=== PATIENT | male | born 1935 | race Caucasian/White ===

== ENCOUNTER → 2017-09-01 | Day surgery (SDC) | payer MEDICARE ==
[~2017-09-01] VITALS: Ht 170.2 cm; Wt 73.0 kg
[~2017-09-01] MED LIST: CHLORHEXIDINE GLUCONATE 2 % 1 PACK (2 CLOTHS) TOPICAL PRN; CYCLOPENTOLATE HCL 1% OPHT SOLN 2 ML BTL ONE; HYALURONIDASE/LIDOCAINE/BUPIVACAINE 5 ML SYR RIGHT EYE ONE; INSULIN HUMAN REGULAR 1,000 UNITS/10 ML VIAL SQ PRN; LACTATED RINGER'S 1000 ML IV PRN; LIDOCAINE HCL 1% PF 30 ML VIAL ONE; LIDOCAINE HCL 2% JELLY 5 ML SYRINGE ONE; LOSA100T PO; METOPROLOL TARTRATE 25 MG TAB PO PRN; OMEP20TA PO; PHENYLEPHRINE HCL 10% OPTH SOLN 5 ML BTL ONE; POVIDONE IODINE 5% (ANTISEPSIS KIT) 4 APPLICATIONS EACH NARE PRN; PROPARACAINE HCL 0.5% OPHT SOLN 15 ML BTL ONE; PROPARACAINE HCL 0.5% OPHT SOLN 15 ML BTL RIGHT EYE ONE; PROPOFOL 200 MG/20 ML AMP ONE; SIMV80TA PO; SODIUM CHLORID 0.9% 500 ML IV PRN; TOBRAMYCIN/DEXAMETHASONE OPTH OINT 3.5 GM TUBE ONE; TROPICAMIDE 1% OPHT SOLN 15 ML BTL ONE; VITA1000 PO
[2017-09-01] MEDS: FLURBIPROFEN 0.03% OPHT SOLN 2.5 ML BTL RIGHT EYE SCH ×4 (07:00→07:15)
[2017-09-01] MEDS: PHENYLEPHRINE HCL 10% OPTH SOLN 5 ML BTL RIGHT EYE SCH ×4 (07:00→07:15)
[2017-09-01] MEDS: TROPICAMIDE 1% OPHT SOLN 15 ML BTL RIGHT EYE SCH ×4 (07:00→07:15)
[2017-09-01] MEDS: CYCLOPENTOLATE HCL 1% OPHT SOLN 2 ML BTL RIGHT EYE SCH ×4 (07:00→07:15)
[2017-09-01 07:20] VITALS: PULSE 77
[2017-09-01 07:32] VITALS: PULSE 68
[2017-09-01 08:48] VITALS: BP 139/79; PULSE 81; RESP 16; TEMP 98; O2SAT 96
--- NOTE | 2017-09-01 13:27 | MP ---
cc: JEFF VILLAREAL M.D. [facility] #[id number] DATE OF SURGERY 09/01/2017 PREOPERATIVE DIAGNOSIS Visually significant cataract right eye. POSTOPERATIVE DIAGNOSIS Visually significant cataract right eye. OPERATION Phacoemulsification with posterior chamber lens implantation, right eye. SURGEON Jeff Villareal MD ANESTHESIA Retrobulbar with MAC. COMPLICATIONS None PROCEDURE After informed consent was obtained, the patient was brought into the operative suite and placed on appropriate monitors by the Anesthesia Service. The patient had received a prior retrobulbar injection of local anesthetic by the Anesthesia Service in the holding area. The patient's operative eye was then prepped and draped in the usual sterile fashion. A wire lid speculum was placed. A paracentesis incision was made in the peripheral cornea with a 1 mm jacques keratome. The anterior chamber was filled with viscoelastic. The anterior chamber was then entered through a stepped, clear corneal incision using a sharp 3 mm jacques keratome. A circular tear capsulorrhexis was then made with a bent needle cystitome. Following hydrodissection of the lens nucleus with balanced saline, phacoemulsification of the nucleus was performed using a modified chopping technique. The remaining cortex was removed with irrigation/aspiration. The prior two procedures were both performed using the handpieces of the [employer] phaco unit. The capsular bag was then filled with viscoelastic. The intraocular lens was then injected into the capsular bag and positioned. The type of intraocular lens and its power can be found elsewhere in this chart. The remaining viscoelastic was then removed from the anterior chamber with the IA handpiece. The anterior chamber was reformed with balanced saline. The wound was then closed securely with stromal hydration. It was found to be watertight to an intraocular pressure of at least 30 mmHg by palpation. A small amount of balanced salt solution was then removed through the paracentesis site and the intraocular pressure at the end of the case was approximately 20 by palpation. All drapes were then removed. TobraDex ointment was then placed in the eye, which was closed beneath a semi-pressure patch dressing. The patient tolerated this procedure well and left the operating room awake and alert. The patient is to follow-up in my office in the morning. MD AYO Esparza/JAIMIE /9:20 AM /1:19 PM
== END | disposition home or self-care (01) ==
LOC: PHSDC 06:30
PROVIDERS: ATTEND Optometrist Occupational Vision
DX: H25.813 Combined forms of age-related cataract, bilateral (principal); H43.813 Vitreous degeneration, bilateral; I12.9 Hypertensive chronic kidney disease with stage 1 through stage 4 chronic kidney disease, or unspecified chronic kidney disease; N18.3 Chronic kidney disease, stage 3 (moderate); E78.5 Hyperlipidemia, unspecified; K21.9 Gastro-esophageal reflux disease without esophagitis
CPT/HCPCS: 00142; 66984; J7040; V2632

== ENCOUNTER → 2017-10-06 | Day surgery (SDC) | payer MEDICARE ==
[~2017-10-06] VITALS: Ht 170.2 cm; Wt 72.5 kg
[~2017-10-06] MED LIST changes: -CYCLOPENTOLATE HCL 1% OPHT SOLN 2 ML BTL ONE; +HYALURONIDASE/LIDOCAINE/BUPIVACAINE 5 ML SYR LEFT EYE ONE; -HYALURONIDASE/LIDOCAINE/BUPIVACAINE 5 ML SYR RIGHT EYE ONE; -INSULIN HUMAN REGULAR 1,000 UNITS/10 ML VIAL SQ PRN; -LIDOCAINE HCL 2% JELLY 5 ML SYRINGE ONE; -METOPROLOL TARTRATE 25 MG TAB PO PRN; -OMEP20TA PO; +OMEP20TA93 PO; -PHENYLEPHRINE HCL 10% OPTH SOLN 5 ML BTL ONE; +PROPARACAINE HCL 0.5% OPHT SOLN 15 ML BTL LEFT EYE ONE; -PROPARACAINE HCL 0.5% OPHT SOLN 15 ML BTL ONE; -PROPARACAINE HCL 0.5% OPHT SOLN 15 ML BTL RIGHT EYE ONE; +SODIUM CHLORID 0.9% 500 ML INJ 500 ML ONE; -SODIUM CHLORID 0.9% 500 ML IV PRN; -TROPICAMIDE 1% OPHT SOLN 15 ML BTL ONE
[2017-10-06] MEDS: PHENYLEPHRINE HCL 10% OPTH SOLN 5 ML BTL LEFT EYE SCH ×4 (07:15→07:30)
[2017-10-06] MEDS: FLURBIPROFEN 0.03% OPHT SOLN 2.5 ML BTL LEFT EYE SCH ×4 (07:15→07:30)
[2017-10-06] MEDS: CYCLOPENTOLATE HCL 1% OPHT SOLN 2 ML BTL LEFT EYE SCH ×4 (07:15→07:30)
[2017-10-06] MEDS: TROPICAMIDE 1% OPHT SOLN 15 ML BTL LEFT EYE SCH ×4 (07:15→07:30)
[2017-10-06 07:19] VITALS: PULSE 76
[2017-10-06 07:48] VITALS: PULSE 67
[2017-10-06 09:00] VITALS: TEMP 98
[2017-10-06 09:20] VITALS: BP 155/81; PULSE 65; RESP 16; O2SAT 97
--- NOTE | 2017-10-06 10:44 | MP ---
cc: JEFF VILLAREAL M.D. [facility] NUMBER: [id number] DATE OF SURGERY: 10/06/2017 PREOPERATIVE DIAGNOSIS: Visually significant cataract left eye. POSTOPERATIVE DIAGNOSIS: Visually significant cataract left eye. OPERATION: Phacoemulsification with posterior chamber lens implantation, left eye. SURGEON: Jeff Villareal MD ANESTHESIA: Retrobulbar with MAC. COMPLICATIONS: None. PROCEDURE: After informed consent was obtained, the patient was brought into the operative suite and placed on appropriate monitors by the Anesthesia Service. The patient had received a prior retrobulbar injection of local anesthetic by the Anesthesia Service in the holding area. The patient's operative eye was then prepped and draped in the usual sterile fashion. A wire lid speculum was placed. A paracentesis incision was made in the peripheral cornea with a 1 mm jacques keratome. The anterior chamber was filled with viscoelastic. The anterior chamber was then entered through a stepped, clear corneal incision using a sharp 3 mm jacques keratome. A circular tear capsulorrhexis was then made with a bent needle cystitome. Following hydrodissection of the lens nucleus with balanced saline, phaco-emulsification of the nucleus was performed using a modified chopping technique. The remaining cortex was removed with irrigation/aspiration. The prior two procedures were both performed using the handpieces of the [employer] phaco unit. The capsular bag was then filled with viscoelastic. The intraocular lens was then injected into the capsular bag and positioned. The type of intraocular lens and its power can be found elsewhere in this chart. The remaining viscoelastic was then removed from the anterior chamber with the IA handpiece. The anterior chamber was reformed with balanced saline. The wound was then closed securely with stromal hydration. It was found to be watertight to an intraocular pressure of at least 30 mmHg by palpation. A small amount of balanced salt solution was then removed through the paracentesis site and the intraocular pressure at the end of the case was approximately 20 by palpation. All drapes were then removed. TobraDex ointment was then placed in the eye, which was closed beneath a semi-pressure patch dressing. The patient tolerated this procedure well and left the operating room awake and alert. The patient is to follow-up in my office in the morning. MD Barak Esparza /9:15 AM /10:39 AM
== END | disposition home or self-care (01) ==
LOC: PHSDC 06:39
PROVIDERS: ATTEND Optometrist Occupational Vision
DX: H25.812 Combined forms of age-related cataract, left eye (principal); H43.813 Vitreous degeneration, bilateral; I12.9 Hypertensive chronic kidney disease with stage 1 through stage 4 chronic kidney disease, or unspecified chronic kidney disease; N18.3 Chronic kidney disease, stage 3 (moderate); K21.9 Gastro-esophageal reflux disease without esophagitis; E55.9 Vitamin D deficiency, unspecified
CPT/HCPCS: 00142; 66984; J7040; V2632

== ENCOUNTER → 2018-03-27 | Day surgery (SDC) | payer MEDICARE ==
[~2018-03-27] VITALS: Ht 170.2 cm; Wt 67.4 kg
[~2018-03-27] MED LIST changes: +ACETAMINOPHEN 1000 MG/100 ML 100 ML IV SCH; +BUPIVACAINE/EPINEPHRINE 0.5% PF 10 ML VIAL ONE; +DEXMEDETOMIDINE HCL 200 MCG/2 ML VIAL ONE; +DO NOT ADM ANY ANTICOAGULANT DRUGS PRN; -HYALURONIDASE/LIDOCAINE/BUPIVACAINE 5 ML SYR LEFT EYE ONE; +INSULIN HUMAN REGULAR 1,000 UNITS/10 ML VIAL SQ PRN; +LACTATED RINGER'S 1000 ML INJ 1,000 ML IV ONE; -LIDOCAINE HCL 1% PF 30 ML VIAL ONE; +LIDOCAINE HCL 1% PF 5 ML SYRINGE OTHER ONE; +METOPROLOL TARTRATE 25 MG TAB PO PRN; +MIDAZOLAM HCL 2 MG/2 ML VIAL ONE; +MORPHINE SULFATE 4 MG/ML INJ IV PUSH PRN; +ONDANSETRON HCL 4 MG/2 ML VIAL IV PUSH PRN; +ONDANSETRON HCL 4 MG/2 ML VIAL IV PUSH SCH; +ONDANSETRON ODT 4 MG TAB ONE; +PHENYLEPH/NS 1000 MCG/10 ML SYR IV ONE; -PROPARACAINE HCL 0.5% OPHT SOLN 15 ML BTL LEFT EYE ONE; +PROPOFOL 200 MG/20 ML AMP IV ONE; -PROPOFOL 200 MG/20 ML AMP ONE; +PROPOFOL 500 MG/50 ML INJ 50 ML ONE; -SODIUM CHLORID 0.9% 500 ML INJ 500 ML ONE; +SODIUM CHLORID 0.9% 500 ML IV PRN; +SODIUM CHLORIDE 0.9% FLUSH 10 ML FLUSH IV FLUSH PRN; +SODIUM CHLORIDE 0.9% FLUSH 10 ML FLUSH IV FLUSH SCH; -TOBRAMYCIN/DEXAMETHASONE OPTH OINT 3.5 GM TUBE ONE; +ZANT150T2 PO; +ceFAZolin 2 GM PREMIX 50 ML IV SCH; +ePHEDrine/NS 25 MG/5 ML SYRINGE IV ONE; +oxyCODONE/ACETAMINOPHEN 5 MG/325 MG TAB PO PRN
[2018-03-27 13:32] VITALS: BP 108/58; PULSE 64; RESP 16; TEMP 97.5; O2SAT 98
--- NOTE | 2018-04-17 07:51 | MP ---
cc: Cornelius Higgins MD DATE OF OPERATION: 03/27/2018 PREOPERATIVE DIAGNOSIS: Right inguinal hernia. POSTOPERATIVE DIAGNOSIS: Right inguinal hernia. PROCEDURE PERFORMED: Laparoscopic right inguinal hernia repair with 12 x 15 ULTRAPRO mesh. SURGEON: Cornelius Higgins MD ANESTHESIA: General endotracheal anesthesia. ESTIMATED BLOOD LOSS: Scant. FINDINGS: Indirect right inguinal hernia. SPECIMENS: None. COMPLICATIONS: None. DESCRIPTION OF PROCEDURE: The patient was brought to the operating room and placed on operating table in supine position, bilateral sequential inflation device placed on lower extremities. General anesthesia was instituted. A Navarrete catheter was placed. Antibiotic was initiated. The abdomen was prepped and draped sterilely. The infraumbilical region was anesthetized with 0.25% Marcaine with epinephrine. A skin incision was made, extended to the right of the umbilicus. It was taken through the subcutaneous tissue. Anterior rectus sheath was encountered. It was incised. The rectus muscle was retracted laterally. The preperitoneal space was then dissected, first with finger dissection, followed by blunt balloon dissection. The self-retaining balloon trocar was then placed. CO2 was insufflated into the preperitoneal space to a pressure of 12 mmHg. Two 5-mm ports were then placed in the midline, attention first focused on the right. The pubic tubercle was dissected, dissecting Chet's ligament. The direct space was dissected. There was preperitoneal fat within it. This was reduced. The space was dissected laterally to the psoas muscle. The hernia sac was dissected off of the spermatic cord and brought into the preperitoneal space. A piece of UltraPro mesh was then opened on the back table. It was cut to 12 x 15 cm. It was introduced and deployed on the patient's right and was deployed to cover the entire myopectineal orifice including the direct, the femoral and indirect space. It was secured to Chet's ligament with a SecureStrap as well as to the rectus muscle anteriorly. Attention was focused on making sure the peritoneum was below mesh. CO2 was then released. Marcaine was insufflated into the preperitoneal space for postop analgesia. All ports were removed. The anterior rectus sheath was approximated with 0 Vicryl suture. All skin edges were approximated with 4-0 Monocryl. The abdominal wall was cleaned and sterile dressing placed. The patient was awakened and taken to recovery room. MD RUBEN Mireles/PARISH , 05:35 PM , 06:46 PM
== END | disposition home or self-care (01) ==
LOC: HSDC 06:53
PROVIDERS: ATTEND Surgery
DX: K40.90 Unilateral inguinal hernia, without obstruction or gangrene, not specified as recurrent (principal)
CPT/HCPCS: 00840; 49650; C1727; C1781; J0131; J0690; J2250; J2370; J3010; J7120